=== PATIENT | male | born 1935 | race Two or more races ===

== ENCOUNTER 2021-06-23 12:57 | Outpatient (CLI) | payer OTHER ==
[~2021-06-23 12:57] MED LIST: AZITHROMYCIN250 MG; DOXAZOSIN MESYLA2 MG; TESSALON PERLE100 MG; XANAX XR0.5 MG
== END 2021-06-23 13:04 | disposition home or self-care (01) ==
LOC: RAD 12:57
DX: Z01.811 Encounter for preprocedural respiratory examination (principal)